=== PATIENT | female | born 1970 | race American Indian/Alaskan Native ===

== ENCOUNTER 2016-12-15 08:24 | Observation (INO) | payer OTHER ==
--- NOTE | 2016-12-11 11:41 | Anesthesia Consultation ---
Anesthesia Consult and Med Hx Date of service: 12/11/16 - Airway Anesthetic Teeth Evaluation: Good (2 front veneers) ROM Head & Neck: Adequate Mental/Hyoid Distance: Adequate Mallampati Class: Class I Intubation Access Assessment: Good - Pulmonary Exam CTA: Yes - Cardiac Exam Cardiac Exam: RRR - Pre-Operative Health Status ASA Pre-Surgery Classification: ASA2 Proposed Anesthetic Plan: General Nerve Block: tap - Pulmonary Hx Asthma: Yes (inhaler use 5m ago for bronchitis exacerbation ) - Gastrointestinal Hx Gastroesophageal Reflux Disease: Yes
[2016-12-11 11:49] LABS: Basophils % (Auto) 1.1 % (0.0-1.8); Eosinophils % (Auto) 2.4 % (0.0-4.3); Hematocrit 35.5 % (30.3-42.9); Hemoglobin 11.5 gm/dl (10.1-14.3); Mean Corpuscular HGB Conc 33 % (30-34); Mean Corpuscular Hemoglobin 28 pg (28-32); Mean Corpuscular Volume 85 fl (79-97); Platelet Count 367 K/mm3 (140-440); Red Blood Count 4.18 M/mm3 (3.65-5.03); Red Cell Distribution Width 15.2 % (13.2-15.2); White Blood Count 6.7 K/mm3 (4.5-11.0)
[2016-12-11 11:56] LABS: Bilirubin,Urine NEG (Negative); Blood,Urine MOD (Negative); Ketones,Urine TR mg/dL (Negative); Leukocyte Esterase,Urine NEG (Negative); Mucus,Urine 1+ /HPF; Nitrite,Urine NEG (Negative); Protein,Urine <15 mg/dL mg/dL (Negative); Urobilinogen,Urine < 2.0 mg/dL (<2.0)
[2016-12-11 12:02] LABS: BUN/Creatinine Ratio 17.14; Blood Urea Nitrogen 12 mg/dL (7-17); Calcium 8.8 mg/dL (8.4-10.2); Sodium 140 mmol/L (137-145)
[2016-12-11 12:03] LABS: Chloride 100.8 mmol/L (98-107); Potassium 3.8 mmol/L (3.6-5.0)
[2016-12-11 12:57] LABS: Alanine Aminotransferase 7 units/L (7-56); Albumin 3.8 g/dL (3.9-5); Albumin/Globulin Ratio 1.1 %; Alkaline Phosphatase 60 units/L (35-129); Anion Gap 19 mmol/L; Carbon Dioxide 24 mmol/L (22-30); Glucose 140 mg/dL (65-100); Total Protein 7.3 g/dL (6.3-8.2)
[~2016-12-15 08:24] MED LIST: LACTATED RINGERS 1,000 ML IV SCH; PEPCID PO NR; VERSED IV NR
--- NOTE | 2016-12-15 09:43 | Anesthesia Day of Surgery ---
Anesthesia Day of Surgery - Day of Surgery Patient Examined: Yes Patient H&P Reviewed: Yes Patient is NPO: Yes
[2016-12-15] MEDS ORDERED: ceFAZolin 3 GM in NACL 0.9% 100 ML IV NR (09:53)
[2016-12-15] MEDS ORDERED: MARCAINE-EPI 0.25%-1:200,000 INFILTRATI ONE ×2 (09:55→09:59)
[2016-12-15] MEDS ORDERED: MARCAINE-EPI 0.5%-1:200,000 INFILTRATI ONE (09:56)
[2016-12-15] MEDS ORDERED: SUBLIMAZE IV ONE (10:00)
[2016-12-15] MEDS ORDERED: NEURONTIN PO NR (10:00)
[2016-12-15] MEDS ORDERED: FLAGYL 500 MG/100 ML 500 MG/100 ML BAG IV NR (10:00)
[2016-12-15] MEDS ORDERED: ZOFRAN IV PRN ×2 (11:00→14:03)
[2016-12-15] MEDS ORDERED: DIPRIVAN 10 MG/ML IV ONE (11:02)
[2016-12-15] MEDS ORDERED: ZEMURON IV ONE ×2 (11:02→12:56)
[2016-12-15] MEDS ORDERED: XYLOCAINE MPF 2% ONE (11:02)
[2016-12-15] MEDS ORDERED: DILAUDID ONE (11:03)
[2016-12-15] MEDS ORDERED: NEOSPORIN GU IR ONE ×2 (11:15→12:07)
[2016-12-15] MEDS ORDERED: CALCIUM CHLORIDE IV ONE (11:16)
[2016-12-15] MEDS ORDERED: ACD-A 500 ML IV ONE (11:16)
[2016-12-15] MEDS ORDERED: THROMBIN (BOVINE) TP ONE (11:17)
[2016-12-15] MEDS ORDERED: NACL 0.9% IR ONE ×2 (12:07)
[2016-12-15] MEDS ORDERED: METHYLENE BLUE ONE (12:49)
[2016-12-15] MEDS ORDERED: LACTATED RINGERS 1,000 ML ONE (12:57)
[2016-12-15] MEDS ORDERED: METHYLENE BLUE IV ONE (13:18)
[2016-12-15] MEDS ORDERED: ROBINUL ONE (13:25)
[2016-12-15] MEDS ORDERED: NEOSTIGMINE ONE (13:25)
[2016-12-15] MEDS ORDERED: ZOFRAN ONE (13:25)
--- NOTE | 2016-12-15 14:01 | Short Stay Summary ---
Short Stay Documentation Date of service: 12/15/16 - History H&P: obtained from office - Allergies and Medications Current Medications: Allergies Sulfa (Sulfonamide Antibiotics) Allergy (Verified 12/10/16 09:12) lips swell Home Medications Medication Instructions Recorded Confirmed Last Taken Type Bifidobacterium Infantis 1 each PO DAILY 12/10/16 12/15/16 12/13/16 History [Digestive Probiotic] Norgestimate-Ethinyl Estradiol 1 tab PO DAILY 12/10/16 12/15/16 12/14/16 History [Trinessa Lo Tablet] Active Medications Famotidine (Pepcid) 20 mg PO PREOP NR Stop: 12/15/16 23:59 Last Admin: 12/15/16 10:00 Dose: 20 mg Gabapentin (Neurontin) 300 mg PO PREOP NR Stop: 12/15/16 15:00 Last Admin: 12/15/16 10:00 Dose: 300 mg Hydromorphone HCl (Dilaudid) 0.5 mg IV Q10MIN PRN PRN Reason: Pain , Severe (7-10) Stop: 12/18/16 18:00 Lactated Ringer's (Lactated Ringers) 1,000 mls @ 42 mls/hr IV DIRECT JENNIFER Last Admin: 12/15/16 09:30 Dose: 42 mls/hr Cefazolin Sodium 3 gm/ Sodium (Chloride) 100 mls @ 200 mls/hr IV ONCE NR Stop: 12/15/16 23:59 Metronidazole (Flagyl 500 Mg/100 Ml) 500 mg in 100 mls @ 200 mls/hr IV PREOP NR Stop: 12/15/16 23:59 Midazolam HCl (Versed) 2 mg IV PREOP NR Stop: 12/15/16 23:59 Last Admin: 12/15/16 10:08 Dose: 2 mg - Brief post op/procedure progress note Date of procedure: 12/15/16 Pre-op diagnosis: chronic pelvic pain, endometriosis, AUB Post-op diagnosis: same Procedure: EUA, laparoscopic,robot-assisted hysterectomy, BSO, GISELL, cystoscopy Anesthesia: GETA Findings: normal appearing uterus, cervix, bilateral tubes, bilateral ovaries, normal appearing bladder with demonstration of bilateral ureteral patency, no significant trabeculations Surgeon: JACI CURRY Estimated blood loss: 50-100ml Pathology: list (uterus, cervix (weighing 180 g), bilateral tubes, bilateral ovaries) Specimen disposition: to lab Condition: stable - Disposition Condition at discharge: Good Disposition: DISCHARGED TO HOME OR SELFCARE Short Stay Discharge Plan Follow up with: ERMA GORMAN MD [Primary Care Provider] - 7 Days
[2016-12-15] MEDS ORDERED: NARCAN 0.4 MG/1 ML IV PRN (14:03)
[2016-12-15] MEDS ORDERED: MORPHINE IV PRN ×2 (14:03)
[2016-12-15] MEDS ORDERED: TYLENOL PO PRN (14:03)
[2016-12-15] MEDS ORDERED: ZOFRAN PO PRN (14:03)
[2016-12-15] MEDS ORDERED: MILK OF MAGNESIA PO PRN (14:03)
[2016-12-15] MEDS ORDERED: REGLAN IV PRN (14:03)
[2016-12-15] MEDS ORDERED: REGLAN PO PRN (14:03)
[2016-12-15] MEDS ORDERED: PERCOCET 5/325 PO PRN (14:03)
--- NOTE | 2016-12-15 14:26 | Post Anesthesia Evaluation ---
- Post Anesthesia Evaluation Patient Participated: Yes Airway Patent: Yes Stable Respiratory Function: Yes Temp > 96.8F: Yes Pain Manageable: Yes Adequeate Hydration: Yes Anesthesia Complications: No Block Receding Appropriately: Not Applicable
[2016-12-15] MEDS: DILAUDID IV PRN ×2 (14:32→14:48)
[2016-12-15] MEDS ORDERED: CLIMARA TD SCH (15:00)
--- NOTE | 2016-12-15 15:05 | Admit Criteria Form ---
Admission Criteria Documentation: AMBULATORY SURGERY EXCEPTION CRITERIA Ambulatory Surgery Exception Criteria ( Place 'X' for any and all applicable criteria): Surgery or procedure performed on ambulatory basis may require inpatient stay for[A] ANY ONE of the following(1)(2)(3)(4)(5)(6)(7)(8)(9): [X] I. A preoperative situation, condition, or finding that warrants inpatient stay as indicated by ANY ONE of the following: [X] a) Inpatient care needed because of severity of a disease or condition rather than the surgery (eg, severe cardiac or respiratory disease, severe infection) (15) (16 ) (17) (18) [] b) Emergent procedure (eg, angioplasty for acute ischemia)(19) [] c) Complex surgical approach or situation as indicated by ANY ONE of the following(3): [] i) Open approach needed instead of usual endoscopic, transcatheter, or other less invasive procedure [] ii) Difficult approach because of previous operation [] iii) Airway monitoring required after open neck procedures(20)(21) [] iv) Large mass requiring unusually extensive dissection [] v) Additional complicating feature requiring inpatient care (eg, drain management)(22(23): [] d) Major surgery in a pt with high anesthetic risk as indicated by ANY ONE of the following (2)(3)(5)(7)(8): [] i) ASA risk class III or higher (severe systemic disease impairing function) [D] [] ii) Advanced age (eg, older than 85 years)(14)(24) [] iii) Symptomatic heart failure(25) [] iv) Symptomatic asthma or COPD(8)(21) [] v) Morbid obesity with hemodynamic or respiratory problems(20)( 21)(26)(27) [] vi) Obstructive sleep apnea(20)(21) [] vii) Former premature infants who are younger than 60 weeks [] viii) High risk for severe postoperative abnormalities (eg, severe postoperative hypocalcemia after parathyroidectomy for severe hyperparathyroidism)(27)( 28) [] ix) Unstable angina(25) [] e) Drug-related risk requiring inpatient stay as indicated by ANY ONE of the following(5)(10)(14)(32)(33) [] i) Procedure requires discontinuing drugs or other therapy (eg , antiarrhythmic medication, antiseizure medication), which necessitates inpatient observation or treatment.(18)(31) [] ii) Major surgery and high risk drug use as indicated by ANY ONE of the following: [] 1) Active abuse of cocaine or similar drug [] 2) Monoamine oxidase inhibitor use [] 3) Other drug identified as posing risk [] f) Inadequate outpatient care situation as indicated by ANY ONE of the following(5)(10)(14)(32)(33) [] i) Patient lives remote from medical facility and procedure has urgent complication potential, and temporary nearby residence cannot be arranged [] ii) Patient will have postprocedure incapacitation and inadequate assistance at home, or alternative level of care cannot be arranged. [] iii) Patient will have long general anesthesia or procedure side effect resolution time, and competent person to stay with patient on first postoperative night at home or alternative level of care cannot be arranged. []iv) Other inadequate outpatient situation that cannot be handled by other means [] II. A perioperative event, condition, or finding that warrants inpatient stay as indicated by ANY ONE of the following (1)(2)(3): [] a) Inadequate physiologic recovery: cardiovascular, respiratory, or hemodynamic status not normal or near preoperative baseline(18) [] b) Hemodynamic instability [] c) Patient not alert with near normal or baseline mental status [] d) Temperature not normal or as expected and not appropriate for outpatient treatment of condition [] e) Ambulatory or appropriate activity level status not yet achieved post procedure [E](34)(35)(36) [] f) Operative site not appropriate (eg, unexpected or excessive drainage or bleeding) [] g) Postoperative effects not resolved or adequately managed (eg, significant pain or vomiting not appropriate for outpatient or next level of care)(10)(12) [] h) Complicating features requiring inpatient care as indicated by ANY ONE of the following(37): [] i) Severe complications of procedure (eg, bowel injury, airway compromise, vascular injury,severe hemorrhage) [] ii) Extensive (eg, dissection far beyond usual scope of procedure ) or prolonged (eg, 120 minutes beyond usual) surgery needed requiring inpatient postoperative care [] iii) Conversion to an open or complex procedure that requires inpatient care (eg, open vs laparoscopic cholecystectomy, abdominal vs vaginal hysterectomy)(38) [] iv) Comorbid condition or test result identified during or post procedure that requires inpatient care (7) [] v) Malignant hyperthermia(30) [] vi) Other complicating feature requiring inpatient care(22)(23) Inpatient stay may be needed until ALL of the following are present (1)(2)(3)(4) (5)(6)(10)(14)(33)(40): []a) Physiologic recovery: cardiovascular, respiratory, and hemodynamic status normal or near preoperative baseline []b) Hemodynamic stability []c) Patient alert, with near normal or baseline mental status []d) Temperature appropriate: patient afebrile or temperature appropriate for outpt treatment of condition []e) Activity level appropriate: ambulatory or appropriate activity level post procedure []f) Operative site appropriate as indicated by ALL of the following: []i) Site dry or with expected drainage []ii) Any blood noted is as expected for procedure. []g) Postoperative effects resolved or managed as indicated by ALL of the following: []i) Pain management appropriate for outpatient (or next level of) care(10) []ii) Minimal nausea and vomiting: if present, successfully treated with oral medication(12) []iii) Headache, dizziness, or drowsiness (if present) are mild. []h) Voiding status acceptable as indicated by ANY ONE of the following: []i) Voiding spontaneously []ii) No voiding but instructions given for follow-up in 6 to 8 hours []iii) Urinary catheter in place, and instructions given for follow-up []i) Complicating features requiring inpatient care manageable at a lower level of care(37) []j) Comorbid conditions manageable at a lower level of care(37) The original [employer] content created by [employer] has been revised. The portions of the content which have been revised are identified through the use of italic text or in bold, and [employer] has neither reviewed nor approved the modified material. All other unmodified content is copyright [employer]. Please see references footnoted in the original [employer] edition 2016 Admission Criteria Met: Yes
[2016-12-15] MEDS: TORADOL IV SCH ×2 (16:57→22:23)
[2016-12-15] MEDS: ANCEF/NS 1 GM/50 ML 1 GM/50 ML BAG IV SCH (17:13)
[2016-12-15] MEDS: D5W/0.45% NACL/KCL 20 MEQ 20 MEQ/1,000 ML BAG IV SCH (17:14)
--- NOTE | 2016-12-15 18:15 | Operative Report ---
PREOPERATIVE DIAGNOSES: Chronic pelvic pain, endometriosis, abnormal uterine bleeding. POSTOPERATIVE DIAGNOSES: Chronic pelvic pain, endometriosis, abnormal uterine bleeding. PROCEDURE: EUA, laparoscopic robotic-assisted hysterectomy, BSO, lysis of adhesions, cystoscopy. FINDINGS: As per postop diagnosis. She had a normal-appearing uterus, cervix, bilateral tubes and bilateral ovaries. On cystoscopy, she had demonstration of bilateral ureteral patency. There was no significant trabeculations. There were no lesions or masses noted. There was no gross hematuria. SURGEON: Dominique Springer MD ASE CERTIFIED TECHNICIAN: Shabnam. ESTIMATED BLOOD LOSS: Less than 50. PATHOLOGY: Uterus, cervix, bilateral tubes, bilateral ovaries (uterine weight 180 gm). SPECIMEN: Sent to the lab. CONDITION: Stable. INDICATIONS: The patient is a 46-year-old female with abnormal uterine bleeding associated with chronic pelvic pain, endometriosis. She reports irregular menses and describes menorrhagia with 5 to 7 days of heavy painful flow and passage of large clots. On her heaviest day, she saturates one super overnight pad per hour. She has tried combined OCPs, but had to discontinue them secondary to daily headaches. She was diagnosed with fibroids and has a history of endometriosis associated with infertility in the past for which she is status post IVF. She has completed childbearing and is interested in definitive surgical treatment. She is being brought to the operating room for a robotic hysterectomy and BSO and cystoscopy. DESCRIPTION OF PROCEDURE: The patient brought to the operating room where general anesthesia was administered without difficulty. She was prepared and draped in usual sterile fashion, positioned in dorsal lithotomy position. A Perez catheter was placed in the bladder. Large secure device was placed in the uterus to provide a means of manipulating the uterus during surgery. Attention was turned to the abdomen where a 5 mm optical trocar was placed in left lower quadrant subcostal margin midclavicular line. A 12 mm trocar was placed approximately 2 to 3 fingerbreadths superior to the umbilicus in the midline. An 8 and a 12 mm trocar was placed, 8 ____ cm to the right of the midline. An 8 mm trocar was placed ____ to the left of midline. The bowel was elevated out of the pelvis to the upper abdomen. The robot was properly docked inside the abdomen and pelvis, the right retroperitoneal space was dissected. The ureter was clearly visualized. The IP ligament on that side was clamped x 3 using Hem-o-loks and then transected. The round ligament on the same side was cauterized and transected. The exact same procedure was carried on the contralateral side. The bladder was dissected from the lower uterine segment. The bilateral uterine vessels were skeletonized, cauterized, and transected. The bilateral cardinal ligaments were cauterized and transected. Following removal of the VCare device, a colpotomy was performed. The uterus and cervix were amputated and were removed from the pelvis via the vagina. Hemostasis was obtained by closing the vaginal cuff in a running fashion using 0 V-Loc suture. A second layer of the same suture was used to imbricate over the vaginal cuff. Hemostasis was confirmed. The pelvis was irrigated. PRP and PPP were generously applied over the bilateral retroperitoneal spaces and the vaginal cuff. The patient was given 10 mL of methylene blue. Following this, a diagnostic cystoscopy was performed with findings as noted above. All instruments were removed from the abdomen and pelvis. All fascial incisions greater than 8 mm closed with 0 Vicryl suture. The skin was closed in subcuticular fashion. Dermabond was applied over the skin incisions. After the cystoscope was withdrawn, the Perez catheter was reinserted. The patient tolerated the procedure well and was taken to recovery room awake and in stable condition. [facility]# [id number] NICOL/IRAIDA
[2016-12-15] MEDS: FLAGYL 500 MG/100 ML 500 MG/100 ML BAG IV SCH (18:23)
[2016-12-15] MEDS: COLACE PO SCH (22:24)
[2016-12-16] MEDS: ANCEF/NS 1 GM/50 ML 1 GM/50 ML BAG IV SCH (01:30)
[2016-12-16] MEDS: FLAGYL 500 MG/100 ML 500 MG/100 ML BAG IV SCH ×2 (02:28→09:04)
[2016-12-16] MEDS: D5W/0.45% NACL/KCL 20 MEQ 20 MEQ/1,000 ML BAG IV SCH (02:29)
[2016-12-16] MEDS: TORADOL IV SCH ×2 (04:45→09:01)
[2016-12-16 05:45] LABS: Hematocrit 30.7 % (30.3-42.9)
[2016-12-16 05:47] LABS: Anion Gap 15 mmol/L; Blood Urea Nitrogen 6 mg/dL (7-17); Calcium 7.9 mg/dL (8.4-10.2); Carbon Dioxide 24 mmol/L (22-30); Chloride 103.4 mmol/L (98-107); Glucose 115 mg/dL (65-100); Potassium 3.6 mmol/L (3.6-5.0); Sodium 139 mmol/L (137-145)
[2016-12-16] MEDS: COLACE PO SCH (09:02)
[2016-12-16] MEDS ORDERED: PROTONIX IV SCH (10:00)
--- NOTE | 2016-12-16 10:31 | Progress Note ---
Subjective Date of service: 12/16/16 Interval history: Pain at 4 controlled now with medications. Up ambulating PRN. No N/V. no anesthetic complications noted Objective - Constitutional Vitals: Vital Signs - 12hr 12/16/16 12/16/16 12/16/16 01:06 04:45 05:00 Temperature 98.8 F 98.1 F Pulse Rate [ 78 59 L Right Brachial] Respiratory 20 18 18 Rate Blood Pressure 117/76 104/67 [Right Arm] 12/16/16 09:00 Temperature 98.5 F Pulse Rate [ 60 Right Brachial] Respiratory 16 Rate Blood Pressure 116/82 [Right Arm] - Labs CBC & Chem 7: 12/16/16 05:08 12/16/16 05:08 Labs: Abnormal lab results 12/16/16 12/16/16 Range/Units 05:08 05:08 Hgb 10.0 L (10.1-14.3) gm/dl BUN 6 L (7-17) mg/dL Glucose 115 H (65-100) mg/dL Calcium 7.9 L (8.4-10.2) mg/dL
[2016-12-16] MEDS ORDERED: PERCOCET 5/325 PO PRN (11:30)
[2016-12-16 15:18] VITALS: BP 118/80
== END 2016-12-16 16:30 | disposition home or self-care (01) ==
LOC: OR 08:24 → OB 14:03
PROVIDERS: ADMIT Obstetrics & Gynecology Gynecology; ATTEND Obstetrics & Gynecology Gynecology
DX: N93.9 Abnormal uterine and vaginal bleeding, unspecified (principal); N92.0 Excessive and frequent menstruation with regular cycle; N80.9 Endometriosis, unspecified; R10.2 Pelvic and perineal pain; G89.29 Other chronic pain; E66.9 Obesity, unspecified; Z68.35 Body mass index [BMI] 35.0-35.9, adult; N94.6 Dysmenorrhea, unspecified; J45.909 Unspecified asthma, uncomplicated; Z98.890 Other specified postprocedural states; Z87.891 Personal history of nicotine dependence; Z82.49 Family history of ischemic heart disease and other diseases of the circulatory system
CPT/HCPCS: 36415; 52000; 58571; 64450; 80048; 80053; 81001; 83735; 84703; 85014; 85018; 85025; 87086; 88307; 96365; 96366; 96367; 96375; 96376; A4217; C1765; C9113; G0378; J0690; J1170; J1885; J2250; J2270; J2405; J2704; J2710; J2765; J3010; J7120; Q9968; S2900